=== PATIENT | male | born 1970 | race African-American/Black ===

== ENCOUNTER → 2017-12-07 | Outpatient (CLI) | payer MEDICAID ==
--- NOTE | 2017-12-07 15:50 | MRI ---
MR right shoulder with and without contrast Indication: Rotator cuff tear and right shoulder pain Technique: Multiplanar multi sequence imaging through the right shoulder before and after IV contrast . 13 cc of Omni scan given IV per protocol. Findings: There is no muscle belly atrophy. Mild AC joint degenerative change and glenohumeral joint degenerative changes noted. Bone marrow signal is normal. Neurovascular structures are normal. There is type 2 acromion with mild AC joint degenerative osteophytes contacting the supraspinatus muscle be lly. Trace subacromial/subdeltoid bursal fluid noted. Intraarticular biceps tendon is intact. There i s supraspinatus tendinosis. The infraspinatus and subscapularis are intact. Glenoid labrum is grossly intact. Bursal surface fraying of the supraspinatus footprint noted on coronal image 13, probably lo w-grade tear. After contrast, there is no abnormal area of enhancement. Impression: 1. Bursal surface fraying/low-grade tear of the supraspinatus at the footprint. Osteophytes contact s upraspinatus myotendinous junction from AC joint degenerative change. 2. No other acute abnormality seen Reported By:
== END ==
LOC: RAD 11:01
PROVIDERS: ATTEND Orthopaedic Surgery
DX: M75.101 Unspecified rotator cuff tear or rupture of right shoulder, not specified as traumatic (principal)
CPT/HCPCS: 73223

== ENCOUNTER → 2018-01-01 | Outpatient (CLI) | payer MEDICAID ==
[2018-01-01 13:30] LABS: BASOPHILS # (AUTO) 0.1 X10^3/uL (0.0-0.1); BASOPHILS % (AUTO) 1.3 % (0.2-1.0); EOSINOPHILS # (AUTO) 0.1 x10^3/uL (0.0-0.2); HEMATOCRIT 42.8 % (42.0-54.0); HEMOGLOBIN 14.9 g/dL (13.5-18.0); LYMPHOCYTES # (AUTO) 2.5 X10^3/uL (1.3-2.9); LYMPHOCYTES % (AUTO) 39.2 % (21.0-51.0); MEAN CORPUSCULAR HEMOGLOBIN 30.5 pg (27.0-34.0); MEAN CORPUSCULAR HGB CONC 34.9 g/dL (33.0-35.0); MEAN CORPUSCULAR VOLUME 87.5 fL (80.0-100.0); MEAN PLATELET VOLUME 7.1 fL (7.4-11.0); MONOCYTES # (AUTO) 0.5 x10^3/uL (0.3-0.8); MONOCYTES % (AUTO) 7.3 % (0.0-13.0); NEUTROPHILS # (AUTO) 3.3 x10^3/uL (2.2-4.8); NEUTROPHILS % (AUTO) 51.2 % (42.0-75.0); PLATELET COUNT 251 X10^3/uL (150.0-450.0); RED BLOOD COUNT 4.89 X10^6/uL (4.7-6.0); RED CELL DISTRIBUTION WIDTH 15.6 % (11.6-16.5); WHITE BLOOD COUNT 6.5 X10^3/uL (3.6-10.0)
[2018-01-01 13:36] LABS: BILIRUBIN,URINE NEGATIVE (NEGATIVE); BLOOD/HEMOGLOBIN,URINE NEGATIVE (NEGATIVE); GLUCOSE, URINE NEGATIVE (NEGATIVE); KETONES,URINE NEGATIVE (NEGATIVE); LEUKOCYTE ESTERASE ,URINE NEGATIVE (NEGATIVE); NITRITES,URINE NEGATIVE (NEGATIVE); PROTEIN,URINE NEGATIVE (NEGATIVE); UROBILINOGEN,URINE NORMAL (NORMAL)
[2018-01-01 13:41] LABS: APPEARANCE,URINE CLEAR (CLEAR); COLOR,URINE YELLOW (YELLOW)
[2018-01-01 13:45] LABS: ALANINE AMINOTRANSFERASE 22 Units/L (12-78); ALBUMIN 4.7 g/dL (3.4-5.0); ALKALINE PHOSPHATASE 63 Units/L (46-116); ASPARTATE AMINO TRANSFERASE 11 Units/L (15-37); BLOOD UREA NITROGEN 16 mg/dL (7-18); C-REACTIVE PROTEIN < 0.50 mg/L (0-3.0); CALCIUM 9.6 mg/dL (8.5-10.1); CARBON DIOXIDE 32.6 mmol/L (21-32); CHLORIDE 104 mmol/L (98-107); CREATININE 1.17 mg/dL (0.70-1.30); SODIUM 140 mmol/L (136-145); TOTAL PROTEIN 8.8 g/dL (6.4-8.2); eGFR BLACK RACES > 60 (>60); eGFR NON BLACK RACES > 60 (>60)
[2018-01-01 14:15] LABS: ERYTHROCYTE SEDIMENTATION RATE 9 MM/HOUR (0-15)
--- NOTE | 2018-01-01 14:57 | RAD ---
HISTORY: Preop. Study: PA and lateral chest. Comparison: None. Findings: The cardiac silhouette is unremarkable. No obvious focal consolidation, pleural effusion, or pneumoth orax. The osseous structures appear normal for age. IMPRESSION: No acute osseous abnormality. Reported By:
== END ==
LOC: LAB 13:02
PROVIDERS: ATTEND Orthopaedic Surgery
DX: Z01.818 Encounter for other preprocedural examination (principal); Z01.811 Encounter for preprocedural respiratory examination; Z01.810 Encounter for preprocedural cardiovascular examination; Z79.899 Other long term (current) drug therapy; Z11.8 Encounter for screening for other infectious and parasitic diseases; M75.101 Unspecified rotator cuff tear or rupture of right shoulder, not specified as traumatic
CPT/HCPCS: 36415; 71046; 80053; 81003; 85025; 85652; 86140; 87640; 87641; 93005; 93010